=== PATIENT | female | born 1995 | race American Indian/Alaskan Native ===

== ENCOUNTER 2017-03-18 19:20 | Inpatient (IN) | payer BC, MEDICAID ==
[2017-03-18] MEDS ORDERED: STADOL IV PRN (20:08)
[2017-03-18] MEDS ORDERED: NARCAN 0.4 MG/1 ML IV PRN (20:08)
[2017-03-18] MEDS ORDERED: SUBLIMAZE IV PRN (20:08)
[2017-03-18] MEDS ORDERED: MINERAL OIL PO PRN (20:08)
[2017-03-18] MEDS ORDERED: ZOFRAN IV PRN (20:08)
[2017-03-18] MEDS ORDERED: BRETHINE IVP PRN (20:08)
[2017-03-18] MEDS ORDERED: XYLOCAINE 2% INFILTRATI ONE (20:08)
[2017-03-18] MEDS ORDERED: PHENERGAN PO PRN (20:08)
[2017-03-18] MEDS ORDERED: BRETHINE SUB-Q PRN (20:08)
[2017-03-18] MEDS ORDERED: ePHEDrine SULFATE IV PRN (20:08)
--- NOTE | 2017-03-18 20:15 | History and Physical Report ---
History of Present Illness Date of examination: 03/18/17 Chief complaint: SROM @ 2044 History of present illness: Pt is a 21yo BF EDC 03/19/17; EGA 39 6/7 weeks presents to L&D complaining of SROM thin meconium fluid @ 2044 preceded by RUC's q 3-4 mins. She received care at [facility] since 16 weeks and course has been unremarkable except for Sickle cell trait. records are available and GBS is negative. Past History Past Medical History: hematologic disorders Past Surgical History: no surgical history Family/Genetic History: sickle cell/trait Social history: no significant social history, single - Obstetrical History Expected Date of Delivery: 03/19/17 Actual Gestation: 39 Week(s) 6 Day(s) Medications and Allergies Allergies Allergy/AdvReac Type Severity Reaction Status Date / Time peanut Allergy Swelling Verified 03/18/17 19:50 Active Meds: Active Medications Butorphanol Tartrate (Stadol) 2 mg IV Q2H PRN PRN Reason: Pain , Severe (7-10) Ephedrine Sulfate (Ephedrine Sulfate) 10 mg IV Q2M PRN PRN Reason: Hypotension Stop: 03/18/17 20:13 Fentanyl (Sublimaze) 100 mcg IV Q2H PRN PRN Reason: Labor Pain Lactated Ringer's (Lactated Ringers) 1,000 mls @ 125 mls/hr IV DIRECT DEN Oxytocin/Sodium Chloride (Pitocin/Ns 20 Unit/1000ml Drip) 20 units in 1,000 mls @ 125 mls/hr IV DIRECT DEN Oxytocin/Sodium Chloride (Pitocin/Ns 30 Unit/500ml) 30 units in 500 mls @ 4 mls /hr IV TITR DEN PRN Reason: Protocol Oxytocin/Sodium Chloride (Pitocin/Ns 30 Unit/500ml) 30 units in 500 mls @ 1 mls /hr IV TITR DEN; 1 MILLIUNITS/MIN PRN Reason: Protocol Lidocaine (Xylocaine 2%) 20 ml INFILTRATI ONCE ONE Stop: 03/18/17 20:09 Mineral Oil (Mineral Oil) 30 ml PO QHS PRN PRN Reason: Constipation Naloxone HCl (Narcan 0.4 Mg/1 Ml) 0.1 mg IV Q2MIN PRN PRN Reason: Res Rate </= 8 or 02 SAT < 92% Ondansetron HCl (Zofran) 4 mg IV Q8H PRN PRN Reason: Nausea And Vomiting Promethazine HCl (Phenergan) 25 mg PO Q6H PRN PRN Reason: Nausea And Vomiting Terbutaline Sulfate (Brethine) 0.25 mg SUB-Q ONCE PRN PRN Reason: Hyperstimulation/Hypertonicity Stop: 03/18/17 20:09 Terbutaline Sulfate (Brethine) 0.25 mg IVP ONCE PRN PRN Reason: Hyperstimulation/Hypertonicity Stop: 03/18/17 20:09 Review of Systems All systems: negative - Vital Signs Vital signs: Vital Signs Pulse Pulse Ox 214 H 94 03/18/17 19:36 03/18/17 19:36 Temp Pulse Resp BP Pulse Ox 95 H 117/77 82 L 03/18/17 19:40 03/18/17 19:40 03/18/17 19:38 - Physical Exam Breasts: Positive: deferred Cardiovascular: Regular rate Lungs: Positive: Clear to auscultation Abdomen: Positive: normal appearance, soft Genitourinary (Female): Positive: normal external genitalia Uterus: Positive: enlarged Extremities: Positive: normal - Obstetrical FHR: category 1 Uterine Contraction Monitor Mode: External Cervical Dilatation: 7 Cervical Effacement Percentage: 90 station: -1 Uterine Contraction Pattern: Regular Uterine Tone Measurement Phase: Contraction Uterine Contraction Intensity: Moderate Results Result Diagrams: 03/18/17 20:00 All other labs normal. Assessment and Plan - Patient Problems (1) 39 weeks gestation of Onset Date: 03/18/17 Current Visit: Yes Status: Acute Plan to address problem: A: IUP @ 39 6/7 weeks in labor Sickle cell trait P: Admit to L&D for expectant vaginal delivery
[2017-03-18 20:38] LABS: Hematocrit 36.6 % (30.3-42.9); Hemoglobin 11.8 gm/dl (10.1-14.3); Mean Corpuscular HGB Conc 32 % (30-34); Mean Corpuscular Hemoglobin 28 pg (28-32); Mean Corpuscular Volume 85 fl (79-97); Platelet Count 166 K/mm3 (140-440); Red Blood Count 4.29 M/mm3 (3.65-5.03); Red Cell Distribution Width 13.9 % (13.2-15.2); White Blood Count 12.7 K/mm3 (4.5-11.0)
[2017-03-18] MEDS ORDERED: PITOCin/NS 20 UNIT/1000ML DRIP 20 UNITS/1,000 ML BAG IV SCH (21:00)
[2017-03-18] MEDS ORDERED: LACTATED RINGERS 1,000 ML IV SCH (21:00)
[2017-03-18] MEDS ORDERED: PITOCin/NS 30 UNIT/500ML 30 UNITS/500 ML BAG IV SCH ×2 (21:00)
[2017-03-19] MEDS ORDERED: SENOKOT S PO SCH
--- NOTE | 2017-03-19 00:29 | Procedure Note ---
OB Delivery Note - Delivery Date of Delivery: 03/19/17 Surgeon: CHIQUITA DUCKWORTH Estimated blood loss: 200cc - Vaginal Delivery presentation: vertex Delivery position: OA Intrapartum events: PROM->1hr before delivery, meconium Delivery induction: AROM Delivery augmentation: pitocin Delivery monitor: external FHT, external uterine Route of delivery: Delivery placenta: spontaneous Delivery cord: nuchal cord (x1), 3 umbilical vessels Episiotomy: none Delivery laceration: none Anesthesia: intravenous Delivery comments: Infant delivered OA and placed on Mom's chest for [id number] bonding and delayed cord clamping. - Infant A at 1 minute: 8 at 5 minutes: 9 Gender: Male (3377gms)
[2017-03-19] MEDS ORDERED: ZOFRAN IV PRN (00:32)
[2017-03-19] MEDS ORDERED: TYLENOL PO PRN (00:32)
[2017-03-19] MEDS ORDERED: PHENERGAN PR PRN (00:32)
[2017-03-19] MEDS ORDERED: DULCOLAX PR PRN (00:32)
[2017-03-19] MEDS ORDERED: MILK OF MAGNESIA PO PRN (00:32)
[2017-03-19] MEDS ORDERED: TUCKS PAD TP PRN (00:32)
[2017-03-19] MEDS ORDERED: LANSINOH TP PRN (00:32)
[2017-03-19] MEDS ORDERED: NORCO 5/325 PO PRN (00:32)
[2017-03-19] MEDS ORDERED: BENADRYL PO PRN (00:32)
[2017-03-19] MEDS ORDERED: PHENERGAN PO PRN (00:32)
[2017-03-19] MEDS: MOTRIN PO SCH ×5 (00:49→23:17)
[2017-03-19] MEDS ORDERED: SODIUM CHLORIDE FLUSH SYRINGE 10 ML IV NR (01:00)
[2017-03-19] MEDS ORDERED: PITOCin/NS 20 UNIT/1000ML DRIP 20 UNITS/1,000 ML BAG IV SCH (01:00)
[2017-03-19] MEDS: FEOSOL PO SCH ×2 (12:05→21:45)
[2017-03-19] MEDS: COLACE PO SCH ×2 (12:05→21:45)
[2017-03-19] MEDS: PRENATAL VITAMIN PO SCH (12:05)
[2017-03-19 16:08] LABS: Hematocrit 34.7 % (30.3-42.9); Hemoglobin 11.2 gm/dl (10.1-14.3)
[2017-03-20] MEDS: MOTRIN PO SCH ×2 (05:14→12:04)
[2017-03-20] MEDS ORDERED: BOOSTRIX IM ONE (06:00)
[2017-03-20] MEDS ORDERED: M-M-R II VACCINE SUB-Q ONE (06:00)
--- NOTE | 2017-03-20 09:42 | Progress Note ---
Assessment and Plan - Patient Problems (1) 39 weeks gestation of Onset Date: 03/18/17 Current Visit: Yes Status: Resolved (2) (normal spontaneous vaginal delivery) Onset Date: 03/20/17 Current Visit: Yes Status: Resolved Plan to address problem: A: S/P - PPD #1 Doing well P: May go home today Subjective - Subjective Date of service: 03/20/17 Principal diagnosis: s/p - PPD #1 Interval history: Pt is feeling well without complaints. Bleeding improved. Patient reports: appetite normal, voiding normally, pain well controlled, ambulating normally [place]: doing well, nursing well Objective - Vital Signs Latest vital signs: Vital Signs Temp Pulse Resp BP 03/20/17 07:25 98.2 F 68 18 100/78 03/20/17 00:00 98.5 F 73 18 107/62 03/19/17 16:25 98.8 F 84 20 100/64 03/19/17 11:25 98.3 F 80 20 98/68 Intake and Output 03/19/17 03/20/17 03/20/17 22:59 06:59 14:59 Intake Total 120 Balance 120 Intake: Oral 120 Other: Total, Intake Amount 120 # Voids Void 1 - Exam Breasts: Present: deferred Cardiovascular: Present: Regular rate Lungs: Present: Clear to auscultation Abdomen: Present: normal appearance, soft Uterus: Present: normal, firm, fundal height below umbilicus Extremities: Present: normal - Labs Labs: Laboratory Tests 03/18/17 03/18/17 03/19/17 20:00 20:00 02:37 WBC 12.7 H RBC 4.29 Hgb 11.8 Hct 36.6 MCV 85 MCH 28 MCHC 32 RDW 13.9 Plt Count 166 Rubella IgG Antibody Immune Blood Type O NEGATIVE Antibody Screen TNR ZAMZAM Antibody Screen Negative 03/19/17 11:50 WBC RBC Hgb 11.2 Hct 34.7 MCV MCH MCHC RDW Plt Count Rubella IgG Antibody Blood Type Antibody Screen ZAMZAM Antibody Screen
[2017-03-20] MEDS: FEOSOL PO SCH (10:40)
[2017-03-20] MEDS: COLACE PO SCH (10:40)
[2017-03-20] MEDS: PRENATAL VITAMIN PO SCH (10:40)
--- NOTE | 2017-03-20 11:17 | Discharge Summary ---
Providers - Providers Date of Admission: 03/18/17 20:15 Date of discharge: 03/20/17 Attending physician: CHIQUITA DUCKWORTH Primary care physician: CHIQUITA DUCKWORTH Hospitalization Reason for admission: active labor, IUP at term Delivery: Episiotomy: none Laceration: none Other procedures: none complications: none Discharge diagnosis: IUP at term delivered [place] baby: male Hospital course: Unremarkable. Condition at discharge: Good Disposition: DC-01 TO HOME OR SELFCARE - Discharge Diagnoses (1) 39 weeks gestation of Status: Resolved (2) (normal spontaneous vaginal delivery) Status: Resolved Plan - Discharge Medications Prescriptions: Ferrous Sulfate [Feosol 325 MG tab] 325 mg PO BID #60 tablet Ibuprofen [Motrin 600 MG tab] 600 mg PO Q6H #30 tablet Vit-Fe Fumar-FA [ Vitamin] 1 each PO QDAY #30 tablet - Provider Discharge Summary Activity: routine, no sex for 6 weeks, no heavy lifting 4 weeks, no strenuous exercise Diet: routine Instructions: routine Additional instructions: [] Smoking cessation referral if applicable(refer to patient education folder for contact #) [] Refer to [facility]'s [facility] Booklet Call your doctor immediately for: * Fever > 100.5 * Heavy vaginal bleeding ( >1 pad per hour) * Severe persistent headache * Shortness of breath * Reddened, hot, painful area to leg or breast * Drainage or odor from incision. * Keep incision clean and dry at all times and follow doctor's instructions regarding bathing/showering - Follow up plan Follow up: CHIQUITA DUCKOWRTH MD [Primary Care Provider] - 6 Weeks
[2017-03-20 17:24] VITALS: BP 100/60
== END 2017-03-20 16:30 | disposition home or self-care (01) | DRG 775 ==
LOC: TRG 19:20 → LD 20:15 → OB 03-19 03:06
PROVIDERS: ADMIT Obstetrics & Gynecology; ATTEND Obstetrics & Gynecology
PROC: 10E0XZZ Delivery of Products of Conception, External Approach (ICD-10-PCS; principal; 2017-03-19)
PROC: 10907ZC Drainage of Amniotic Fluid, Therapeutic from Products of Conception, Via Natural or Artificial Opening (ICD-10-PCS; 2017-03-19)
PROC: 3E0234Z Introduction of Serum, Toxoid and Vaccine into Muscle, Percutaneous Approach (ICD-10-PCS; 2017-03-20)
DX: O99.02 Anemia complicating childbirth (principal); D57.3 Sickle-cell trait; O77.0 Labor and delivery complicated by meconium in amniotic fluid; O69.81X0 Labor and delivery complicated by cord around neck, without compression, not applicable or unspecified; O42.92 Full-term premature rupture of membranes, unspecified as to length of time between rupture and onset of labor; D64.9 Anemia, unspecified; Z37.0 Single live birth; Z3A.39 39 weeks gestation of pregnancy; Z91.010 Allergy to peanuts; Z23 Encounter for immunization
CPT/HCPCS: 36415; 85014; 85018; 85027; 86762; 86850; 86900; 86901; 99211; A6250; G0463; J0595; J2405; J2590; J3010; J7120